=== PATIENT | male | born 1940 | race Caucasian/White ===

== ENCOUNTER → 2020-01-23 | Outpatient (CLI) | payer OTHER ==
[~2020-01-23] MED LIST: ALOGLIPTIN25 MG PO; ARTHRITIS PAIN650 M3 PO; ASPIRIN EC81 M1 PO; B-100 COMPLEX1 EAC1 PO; BENADRYL25 MG PO; CHILDREN'S ASPI81 MG PO; CIPROFLOXACIN500 M3 PO; COLACE CLEAR50 MG PO; ETODOLAC 400 M400 M1 PO; FISH OIL 1,4001 EACH PO; FLAGYL500 MG PO; GLUCOPHAGE1000 MG PO; LISINOPRIL40 MG PO; MAGNESIUM400 MG PO; MELATONIN10 M3 PO; MELATONIN3 MG PO; METAMUCIL197.2 GM PO; MIRALAX119 GM PO; MULTIVITAMINS PO; NORVASC5 MG PO; OMEPRAZOLE 20 M20 M1 PO; POTASSIUM99 M1 PO; PREDNISONE 5 MG5 M1 PO; PRINIVIL20 M1 PO; PROPRANOLOL HCL60 M1 PO; PROTONIX40 M2 PO; SIMVASTATIN20 MG PO; SUPER B COMPLE1 EAC2 PO; SUPER THERAVIT1 EACH PO; TAMSULOSIN HCL0.4 MG PO; TRAMADOL 50 MG50 MG PO; VIAGRA100 MG PO; VITAMIN D350 MCG PO; ZINC30 MG PO; [UNRECOGNIZED DRUG - CODE] PO
== END ==
LOC: LAB 09:24
PROVIDERS: ATTEND Internal Medicine Gastroenterology
DX: Z01.812 Encounter for preprocedural laboratory examination (principal); Z20.828 Contact with and (suspected) exposure to other viral communicable diseases

== ENCOUNTER → 2020-01-29 | Outpatient (CLI) | payer OTHER ==
[~2020-01-29] VITALS: Ht 180.3 cm; Wt 72.6 kg
== END | disposition home or self-care (01) ==
LOC: GI 07:26
PROVIDERS: ATTEND Internal Medicine Gastroenterology
DX: K92.1 Melena (principal); K57.30 Diverticulosis of large intestine without perforation or abscess without bleeding; K64.8 Other hemorrhoids; K21.9 Gastro-esophageal reflux disease without esophagitis; I10 Essential (primary) hypertension; E78.00 Pure hypercholesterolemia, unspecified; M19.90 Unspecified osteoarthritis, unspecified site; G43.909 Migraine, unspecified, not intractable, without status migrainosus; N40.0 Benign prostatic hyperplasia without lower urinary tract symptoms; E11.9 Type 2 diabetes mellitus without complications; Z87.19 Personal history of other diseases of the digestive system; Z85.828 Personal history of other malignant neoplasm of skin; Z88.6 Allergy status to analgesic agent; Z88.8 Allergy status to other drugs, medicaments and biological substances; Z87.891 Personal history of nicotine dependence; Z98.890 Other specified postprocedural states; Z79.899 Other long term (current) drug therapy; Z96.651 Presence of right artificial knee joint
CPT/HCPCS: 62110; 62900